=== PATIENT | female | born 1980 | race Caucasian/White ===

== ENCOUNTER 2020-01-06 12:10 | Emergency (ER) | payer OTHER ==
--- NOTE | 2020-01-06 12:16 | TELE ---
HPI Do you have fever,cough or shortness of breath?: Yes - General Reason For Visit: COVID 19 TEST History Source: Patient Review of Systems - Review of Systems Able to Perform ROS?: No Limited Hebrew proficient: No Constitutional: No: Fever Respiratory: No: Cough *Physical Exam - Physical Exam Respiratory/Chest: negative: Respiratory Distress Discharge Diagnosis at time of Disposition: Telehealth encounter for confirmed COVID-19 - Referrals Follow-up Referral(s): Praneeth Wallace [Primary Care Provider] - - Patient Instructions
== END 2020-01-06 12:16 | disposition home or self-care (01) ==
LOC: JVIRT 12:10
DX: Z11.59 Encounter for screening for other viral diseases (principal)
CPT/HCPCS: Q3014-GT

== ENCOUNTER 2020-01-07 05:21 | Day surgery (SDC) | payer OTHER ==
[2020-01-06 15:10] VITALS: BMI 29.7
--- NOTE | 2020-01-07 11:34 | HP ---
History & Physical Update - History History: No Change - Physical Physical: No Change - Assessment Assessment: No Change - Plan Plan: No Change (H&P reviwed , no changes , for suction D&C)
[2020-01-07] MEDS ORDERED: DEXAMETHASONE SOD PHOSPHATE 4 MG/1 ML VIAL ONE (14:22)
[2020-01-07] MEDS ORDERED: PROPOFOL 20 ML ONE ×2 (14:22→14:43)
[2020-01-07] MEDS ORDERED: SUCCINYLCHOLINE CHLORIDE 200 MG/10 ML SYRINGE ONE (14:22)
[2020-01-07] MEDS ORDERED: MIDAZOLAM HCL 2 MG/2 ML SINGLE DOSE VIAL ONE (14:23)
[2020-01-07] MEDS ORDERED: ceFAZolin SODIUM 1 GM VIAL ONE (14:39)
--- NOTE | 2020-01-07 14:59 | OP ---
Operative Note - Note: Operative Date: 01/07/20 Pre-Operative Diagnosis: missed Operation: suction D&C Findings: uterus 12 weeks size , no adenexa masses ,large amount of placenta like tissue removed Surgeon: Rohith Mittal Anesthesia: General Specimens Removed: POC Estimated Blood Loss (mls): 50 Drains & Tubes with Location: none Blood Volume Replaced (mls): 0 Operative Report Dictated: Yes
[2020-01-07] MEDS ORDERED: ONDANSETRON 4 MG/2 ML VIAL IVPUSH PRN (15:08)
[2020-01-07] MEDS ORDERED: oxyCODONE HCL 5 MG TABLET PO PRN ×2 (15:08)
[2020-01-07] MEDS ORDERED: LACTATED RINGERS SOLUTION 1,000 ML IV SCH (15:15)
--- NOTE | 2020-01-07 16:24 | OP ---
DATE OF OPERATION: 01/07/2020 PREOPERATIVE DIAGNOSIS: Missed . POSTOPERATIVE DIAGNOSIS: Missed . PROCEDURE: Suction, dilation and curettage. SURGEON: Rohith Mittal MD ANESTHESIA: General. ESTIMATED BLOOD LOSS: 50 mL OPERATION: Patient was taken to the operating room. Under adequate general anesthesia in dorsal lithotomy position, examination under anesthesia revealed the external genitalia to be normal. Vagina: Some blood was seen, also was closed. Uterus was 12-week size and anteverted. Adnexa: No masses were palpable. Then with a weighted speculum in the vagina, anterior lip of the cervix was grasped with single-tooth tenaculum. Cervix was gradually dilated with Hegar dilator and then suction curette was inserted into the uterine cavity and the contents were suctioned in its entirety. Patient tolerated procedure well, left the OR in good condition. Sri [id number]
[2020-01-07 16:29] VITALS: TEMP 98
[2020-01-07 18:08] VITALS: BP 110/76; PULSE 68
--- NOTE | 2020-01-13 17:55 | PATH ---
Surgical Pathology Report Patient Name: ADRYAN DONOVAN Med. Rec. #: [id number] /Age/Gender: 1980 (Age: 39) / F Account: [id number] Location: [facility] SUR[facility]ICAL Taken: 01/07/2020 Received: 01/08/2020 Reported: 01/13/2020 Physicians: Rohith Mittal M.D. Specimen(s) Received PRODUCTS OF CONCEPTION Clinical History Missed Final Diagnosis PRODUCTS OF CONCEPTION, DILATION AND CURETTAGE: IMMATURE CHORIONIC VILLI, DECIDUA, AND GESTATIONAL ENDOMETRIUM CONSISTENT WITH PRODUCTS OF CONCEPTION. Electronically Signed Rabia King M.D. Gross Description Received in formalin labeled "products of conception," is a 12.0 x 8.0 x 1.8 cm aggregate of red-brown soft tissue fragments. Villous tissue is identified. No definitive somatic tissue is identified. A congressional representative portion is submitted in one cassette. 01/08/2020 [facility]01/08/2020
== END 2020-01-07 17:10 | disposition home or self-care (01) ==
LOC: JASU-SURG 05:21
PROVIDERS: ATTEND Obstetrics & Gynecology
PROC: 10D17Z9 Manual Extraction of Products of Conception, Retained, Via Natural or Artificial Opening (ICD-10-PCS; principal; 2020-01-07 14:00)
DX: O02.1 Missed abortion (principal)
CPT/HCPCS: 86850; 86900; 86901; 88305-TC; 94760